=== PATIENT | female | born 1980 | race Hispanic/Latino ===

== ENCOUNTER → 2024-02-21 10:09 | Outpatient (REF) | payer OTHER, SELFPAY ==
[2024-02-21 11:22] LABS: Hematocrit 33.1 % (37.0-47.0); Hemoglobin 10.8 g/dL (12.0-16.0); Mean Corp Hgb Conc. 32.6 g/dL (33.0-37.0); Mean Corpuscular Hgb 28.3 pg (27.0-31.0); Mean Corpuscular Volume 86.9 fL (81.0-99.0); Mean Platelet Volume 10.1 fL (7.4-10.4); Platelet Count 288 10^3/uL (130-400); Red Blood Cell Count 3.81 10^6/uL (4.20-5.40); Red Cell Dist. Width 16.3 % (11.5-14.5); White Blood Cell Count 5.5 10^3/uL (4.8-10.8)
[2024-02-21 11:58] LABS: ALT (SGPT) 23 U/L (0-35); AST (SGOT) 27 U/L (14-36); Albumin 4.7 g/dl (3.5-5.0); Alkaline Phosphatase 102 U/L (38-126); Blood Urea Nitrogen 25 mg/dl (7-17); Calcium 9.6 mg/dl (8.4-10.2); Carbon Dioxide 25 mmol/L (22-30); Chloride 106 mmol/L (98-107); Glucose 96 mg/dl (70-99); HDL Cholesterol 81 mg/dl; LDL Cholesterol, Calculated 112 mg/dl; Sodium 141 mmol/L (135-145); Total Bilirubin 0.3 mg/dl (0.2-1.3); Total Cholesterol 216 mg/dl (50-199); Total Protein 7.7 g/dl (6.3-8.2); Triglyceride 116 mg/dl (10-149); Very Low Density Lipoprotein 23 mg/dl (0-30); eGFR > 60.00
[2024-02-21 12:12] LABS: Vitamin D, 25-OH*** 37.6 ng/mL (30-80)
[2024-02-21 12:15] LABS: Glycohemoglobin (HgbA1c) 5.6 % (4.0-5.6)
[2024-02-21 12:26] LABS: TSH Reflex To Free T4 1.67 uIU/ml (0.47-4.68)
== END ==
LOC: REG 10:09
PROVIDERS: ATTENDING PHYSICIAN Nurse Practitioner Adult Health
DX: Z00.00 Encounter for general adult medical examination without abnormal findings (principal); R73.03 Prediabetes
CPT/HCPCS: 36415; 80053; 80061; 82306; 83036; 84443; 85027

== ENCOUNTER → 2024-06-11 07:56 | Outpatient (REF) | payer OTHER, SELFPAY ==
[2024-06-11 08:56] LABS: Hematocrit 33.2 % (37.0-47.0); Hemoglobin 10.8 g/dL (12.0-16.0); Mean Corp Hgb Conc. 32.5 g/dL (33.0-37.0); Mean Corpuscular Hgb 29.8 pg (27.0-31.0); Mean Corpuscular Volume 91.5 fL (81.0-99.0); Mean Platelet Volume 10.2 fL (7.4-10.4); Platelet Count 271 10^3/uL (130-400); Red Blood Cell Count 3.63 10^6/uL (4.20-5.40); Red Cell Dist. Width 15.3 % (11.5-14.5); White Blood Cell Count 3.5 10^3/uL (4.8-10.8)
[2024-06-11 09:31] LABS: Iron 36 ug/dl (37-170)
[2024-06-11 10:09] LABS: Ferritin 5.6 ng/ml (6.24-137)
[2024-06-11 10:23] LABS: Vitamin B12 > 1000 pg/ml (239-931)
[2024-06-11 11:33] LABS: Percent Saturation 8 % (20-50); Total Iron Binding Capacity 441 ug/dl (265-497)
== END ==
LOC: REG 07:56
PROVIDERS: ATTENDING PHYSICIAN Nurse Practitioner Adult Health
DX: D50.0 Iron deficiency anemia secondary to blood loss (chronic) (principal)
CPT/HCPCS: 36415; 82607; 82728; 83540; 83550; 85027

== ENCOUNTER → 2024-06-19 09:46 | Outpatient (REF) | payer OTHER, SELFPAY ==
[2024-06-19 10:58] LABS: ALT (SGPT) 25 U/L (0-35); AST (SGOT) 26 U/L (14-36); Albumin 4.2 g/dl (3.5-5.0); Alkaline Phosphatase 118 U/L (38-126); Direct Bilirubin 0.1 mg/dl (0.0-0.4); Total Bilirubin 0.4 mg/dl (0.2-1.3); Total Protein 7.2 g/dl (6.3-8.2)
[2024-06-20 08:42] LABS: H. pylori Breath Test Negative (Negative)
== END ==
LOC: CLINIC 09:46
PROVIDERS: ATTENDING PHYSICIAN Nurse Practitioner Adult Health
DX: K29.70 Gastritis, unspecified, without bleeding (principal)
CPT/HCPCS: 36415; 80076; 83013

== ENCOUNTER → 2024-11-13 10:58 | Outpatient (REF) | payer OTHER, SELFPAY ==
[2024-11-16 08:39] LABS: HPV, High Risk Not Detected; HPV, High Risk Source Cervical
== END ==
LOC: CLINIC 10:58
PROVIDERS: ATTENDING PHYSICIAN Nurse Practitioner Adult Health
DX: Z12.4 Encounter for screening for malignant neoplasm of cervix (principal)
CPT/HCPCS: 87624

== ENCOUNTER → 2025-01-15 11:46 | Outpatient (REF) | payer OTHER, SELFPAY ==
[2025-01-15 13:25] LABS: Hematocrit 35.4 % (37.0-47.0); Hemoglobin 11.7 g/dL (12.0-16.0); Mean Corp Hgb Conc. 33.1 g/dL (33.0-37.0); Mean Corpuscular Volume 93.4 fL (81.0-99.0); Platelet Count 244 10^3/uL (130-400); Red Cell Dist. Width 13.6 % (11.5-14.5)
[2025-01-15 13:44] LABS: ALT (SGPT) 27 U/L (0-35); AST (SGOT) 27 U/L (14-36); Albumin 4.3 g/dl (3.5-5.0); Alkaline Phosphatase 87 U/L (38-126); Blood Urea Nitrogen 12 mg/dl (7-17); Calcium 8.8 mg/dl (8.4-10.2); Carbon Dioxide 25 mmol/L (22-30); Chloride 105 mmol/L (98-107); Glucose 88 mg/dl (70-99); Iron 112 ug/dl (37-170); Potassium 4.4 mmol/L (3.5-5.1); Sodium 136 mmol/L (135-145); Total Protein 7.3 g/dl (6.3-8.2); eGFR > 60.00
[2025-01-15 13:54] LABS: Total Iron Binding Capacity 399 ug/dl (265-497)
[2025-01-15 14:19] LABS: Ferritin 17.1 ng/ml (6.24-137)
== END ==
LOC: CLINIC 11:46
PROVIDERS: ATTENDING PHYSICIAN Nurse Practitioner Adult Health
DX: D50.0 Iron deficiency anemia secondary to blood loss (chronic) (principal); Z12.11 Encounter for screening for malignant neoplasm of colon
CPT/HCPCS: 36415; 80053; 82728; 83540; 83550; 85027

== ENCOUNTER → 2025-01-16 14:56 | Outpatient (REF) | payer OTHER, SELFPAY ==
[2025-01-19 13:14] LABS: FIT-Fecal Occult Blood Interp Negative
== END ==
LOC: CLINIC 14:56
PROVIDERS: ATTENDING PHYSICIAN Nurse Practitioner Adult Health
DX: Z12.11 Encounter for screening for malignant neoplasm of colon (principal)
CPT/HCPCS: 83520

== ENCOUNTER → 2025-02-04 18:51 | Outpatient (REF) | payer OTHER, SELFPAY | LOC: WDC 18:51 | PROVIDERS: ATTENDING PHYSICIAN Nurse Practitioner Adult Health | DX: Z12.31 Encounter for screening mammogram for malignant neoplasm of breast (principal) | CPT/HCPCS: 77063; 77067 ==

== ENCOUNTER → 2025-02-19 09:37 | Outpatient (REF) | payer OTHER, SELFPAY | LOC: WDC 09:37 | PROVIDERS: ATTENDING PHYSICIAN Nurse Practitioner Adult Health | DX: R92.8 Other abnormal and inconclusive findings on diagnostic imaging of breast (principal) | CPT/HCPCS: 76642 ==